=== PATIENT | male | born 1955 | race African-American/Black ===

== ENCOUNTER 2019-05-18 10:47 | Inpatient (IN) | payer BC ==
[2019-05-18 11:34] VITALS: BMI 32.9
[2019-05-18] MEDS ORDERED: VANCOMYCIN 1,000 MG in DEXTROSE 5%-WATER - 250 ML IVPB ONE (12:00)
[2019-05-18] MEDS ORDERED: TRANEXAMIC ACID 1000 MG/10 ML VIAL IVPUSH ONE (12:00)
[2019-05-18] MEDS ORDERED: VALSARTAN 160 MG TABLET (UD) PO ONE (12:00)
[2019-05-18] MEDS ORDERED: CEFAZOLIN 2 GM in DEXTROSE 5%-WATER - 50 ML IVPB ONE (12:00)
[2019-05-18] MEDS ORDERED: BUPIVACAINE HCL/PF 2.5 MG/ML - 30 ML VIAL IJ ONE (13:44)
[2019-05-18] MEDS ORDERED: BUPIVACAINE LIPOSOME/PF (EXPAREL) 266 MG/20 ML VIAL ONE (13:44)
[2019-05-18] MEDS ORDERED: MIDAZOLAM HCL 2 MG/2 ML SINGLE DOSE VIAL ONE ×3 (13:44→15:50)
[2019-05-18] MEDS ORDERED: SODIUM CHLORIDE 0.9% P/F 10 ML VIAL IJ ONE (13:44)
[2019-05-18] MEDS ORDERED: ePHEDrine SULFATE 50 MG/1 ML AMPULE ONE (14:45)
[2019-05-18] MEDS ORDERED: TRANEXAMIC ACID 1000 MG/10 ML VIAL ONE (16:37)
[2019-05-18] MEDS ORDERED: ceFAZolin SODIUM 1 GM VIAL ONE (16:47)
[2019-05-18] MEDS ORDERED: MAG HYDROX/AL HYDROX/SIMETH 30 ML UNIT-DOSE CUP PO PRN (17:02)
[2019-05-18] MEDS ORDERED: ONDANSETRON 4 MG/2 ML VIAL IVPUSH PRN ×2 (17:02→17:34)
[2019-05-18] MEDS ORDERED: MAGNESIUM HYDROX 2400MG/30ML ORAL SUSPENSION 30 ML CUP PO PRN (17:02)
--- NOTE | 2019-05-18 17:02 | OP ---
Operative Note - Note: Operative Date: 05/18/19 Pre-Operative Diagnosis: right knee arthritis Operation: s/p Right total knee replacment Surgeon: Abel Santana Microeconomics Professor: Raya Mckeon Anesthesiologist/HYDROELECTRIC POWERPLANT SUPERVISOR: Jaime Maddox Estimated Blood Loss (mls): 30 Fluid Volume Replaced (mls): 1,300 Operative Report Dictated: Yes
[2019-05-18] MEDS ORDERED: LACTATED RINGERS SOLUTION 1,000 ML IV SCH (17:15)
[2019-05-18] MEDS ORDERED: oxyCODONE HCL 5 MG TABLET PO PRN (17:34)
[2019-05-18] MEDS ORDERED: PROMETHAZINE HCL 25 MG/1 ML VIAL IVPUSH PRN (17:34)
[2019-05-18] MEDS ORDERED: ACETAMINOPHEN 325 MG TABLET (FP) PO SCH (18:00)
--- NOTE | 2019-05-18 18:04 | SURG ---
Surgery Slab Lifting Supervisor Note Slab Lifting Supervisor: Raya Mckeon PA-C Date of Service: 05/18/19 Diagnosis: right knee arthritis Procedure: s/p Right total knee replacment I was present for the entirety of the operative procedure. For further detail, please refer to operative report. Visit type - Case Type Case Type: Scheduled - Emergency Emergency Visit: No - New patient This patient is new to me today: Yes Date on this admission: 05/18/19
[2019-05-18] MEDS: oxyCODONE HCL 10 MG SUSTAINED ACTING TABLET PO SCH (21:08)
[2019-05-18] MEDS: ASPIRIN 81 MG CHEWABLE TABLETS PO SCH (21:08)
[2019-05-18] MEDS: SENNOSIDES/DOCUSATE COMBO (SENNA PLUS) TABLET (UD) PO SCH (21:09)
[2019-05-18] MEDS: oxyCODONE HCL 5 MG TABLET PO PRN (21:59)
[2019-05-19] MEDS: ACETAMINOPHEN 325 MG TABLET (FP) PO SCH ×6 (00:01→23:54)
[2019-05-19] MEDS: CEFAZOLIN 1 GM/D5W 1 GM/50 ML BAG IVPB SCH ×2 (01:32→09:06)
[2019-05-19] MEDS: oxyCODONE HCL 5 MG TABLET PO PRN ×6 (02:50→21:53)
[2019-05-19] MEDS: SODIUM CHLORIDE 1,000 ML IV SCH ×2 (07:28→17:38)
[2019-05-19 08:33] LABS: HEMATOCRIT 43.7 % (35.4-49); HEMOGLOBIN 14.4 GM/dl (11.7-16.9); MCH 30.4 pg (25.7-33.7); MCHC 32.9 g/dl (32.0-35.9); MEAN CELL VOLUME 92.5 fl (80-96); MEAN PLT VOLUME 10.2 fl (7.5-11.1); PLATELET COUNT 146 K/MM3 (134-434); RBC 4.72 M/mm3 (4.00-5.60); RDW 13.7 % (11.9-15.9); WHITE BLOOD COUNT 13.6 K/mm3 (4.0-10.8)
[2019-05-19 08:43] LABS: CALCIUM 8.7 mg/dl (8.5-10)
[2019-05-19] MEDS: PANTOPRAZOLE 40 MG TABLET (FP) PO SCH (09:05)
[2019-05-19] MEDS: FUROSEMIDE 20 MG TABLET (FP) PO SCH (09:05)
[2019-05-19] MEDS: glipiZIDE-XL 5 MG TAB.ER.24 PO SCH (09:05)
[2019-05-19] MEDS: VALSARTAN 160 MG TABLET (UD) PO SCH (09:05)
[2019-05-19] MEDS: oxyCODONE HCL 10 MG SUSTAINED ACTING TABLET PO SCH ×2 (09:05→21:52)
[2019-05-19] MEDS: MULTIVITAMINS (DAILY MVI) TABLET (FP) PO SCH (09:05)
[2019-05-19] MEDS: SENNOSIDES/DOCUSATE COMBO (SENNA PLUS) TABLET (UD) PO SCH ×2 (09:05→21:52)
[2019-05-19] MEDS: ASPIRIN 81 MG CHEWABLE TABLETS PO SCH ×2 (09:05→21:52)
[2019-05-19] MEDS ORDERED: MULTIVITAMINS (DAILY MVI) TABLET (FP) PO SCH (10:00)
--- NOTE | 2019-05-19 11:13 | CONSULT ---
Consult Consult Specialty:: IM Reason for Consultation:: post-op medical management - History of Present Illness Chief Complaint: right knee pain History of Present Illness: 64 yo man with right knee OA came in for TKR. no complications. denies chest pain, SOB, nausea, vomiting, diarrhea - History Source History Provided By: Patient Limitations to Obtaining History: No Limitations - Alcohol/Substance Use Hx Alcohol Use: No - Smoking History Smoking history: Never smoked Home Medications - Allergies Allergies/Adverse Reactions: Allergies Allergy/AdvReac Type Severity Reaction Status Date / Time No Known Drug Allergies Allergy Verified 05/18/19 10:53 seasonal Allergy Uncoded 05/09/19 16:21 - Home Medications Home Medications: Ambulatory Orders Furosemide [Lasix -] 20 mg PO DAILY 05/09/19 Glipizide [Glipizide ER] 5 mg PO DAILY 05/09/19 Metoprolol Succinate [Toprol Xl] 100 mg PO DAILY 05/09/19 Multivitamin [One-Daily Multi-Vitamin] 1 each PO DAILY 05/09/19 [place]-3/Dha/Epa/Dpa/Fish Oil [[place]-3 2100 Softgel] 1 each PO DAILY 05/09/19 Valsartan 320 mg PO DAILY 05/09/19 Review of Systems - Review of Systems Constitutional: reports: No Symptoms Eyes: reports: No Symptoms HENT: reports: No Symptoms Neck: reports: No Symptoms Cardiovascular: reports: No Symptoms Respiratory: reports: No Symptoms Gastrointestinal: reports: No Symptoms Genitourinary: reports: No Symptoms Musculoskeletal: reports: Joint Pain Integumentary: reports: No Symptoms Neurological: reports: No Symptoms Endocrine: reports: No Symptoms Hematology/Lymphatic: reports: No Symptoms Psychiatric: reports: No Symptoms Physical Exam Vital Signs: Vital Signs Temperature 98.7 F 05/19/19 07:26 Pulse Rate 63 05/19/19 07:26 Respiratory Rate 20 05/19/19 07:26 Blood Pressure 135/66 05/19/19 07:26 O2 Sat by Pulse Oximetry (%) 95 05/19/19 07:26 Constitutional: Yes: Well Nourished, No Distress Eyes: Yes: WNL HENT: Yes: WNL Neck: Yes: WNL Cardiovascular: Yes: WNL Respiratory: Yes: WNL Gastrointestinal: Yes: WNL Renal/: Yes: WNL Musculoskeletal: Yes: Joint Stiffness Extremities: Yes: WNL Edema: No Peripheral Pulses WNL: Yes Integumentary: Yes: WNL Wound/Incision: Yes: Clean/Dry, Well Approximated Neurological: Yes: WNL ...Motor Strength: WNL Psychiatric: Yes: WNL Labs: CBC, BMP 05/19/19 07:30 05/19/19 07:30 Assessment/Plan 64 yo man S/P TKR POD#1 cont pain management. incentive spirometry on aspirin, tylenol, oxycodone. -GI, DVT prophylaxis. -post-op reactive leucocytosis: will monitor. -type II DM: on glipizide -opioid induced constipation: cont stool softeners -HTN: on valsartan, toprol XL -PT/OT/OOB as tolerated -oral diet; well tolerated -hopefully will DC tomorrow
[2019-05-20] MEDS: oxyCODONE HCL 5 MG TABLET PO PRN ×3 (05:13→12:02)
[2019-05-20] MEDS: ACETAMINOPHEN 325 MG TABLET (FP) PO SCH ×2 (05:14→12:02)
[2019-05-20] MEDS: glipiZIDE-XL 5 MG TAB.ER.24 PO SCH (09:23)
[2019-05-20] MEDS: SENNOSIDES/DOCUSATE COMBO (SENNA PLUS) TABLET (UD) PO SCH (09:24)
[2019-05-20] MEDS: ASPIRIN 81 MG CHEWABLE TABLETS PO SCH (09:24)
[2019-05-20] MEDS: oxyCODONE HCL 10 MG SUSTAINED ACTING TABLET PO SCH (09:24)
[2019-05-20] MEDS: MULTIVITAMINS (DAILY MVI) TABLET (FP) PO SCH (09:24)
[2019-05-20] MEDS: PANTOPRAZOLE 40 MG TABLET (FP) PO SCH (09:24)
[2019-05-20] MEDS: VALSARTAN 160 MG TABLET (UD) PO SCH (09:24)
[2019-05-20] MEDS: FUROSEMIDE 20 MG TABLET (FP) PO SCH (09:24)
[2019-05-20 09:41] VITALS: BP 134/96; PULSE 88; TEMP 99.1
[2019-05-20 09:47] LABS: HEMATOCRIT 41.7 % (35.4-49); HEMOGLOBIN 13.4 GM/dl (11.7-16.9); MCH 30.3 pg (25.7-33.7); MCHC 32.2 g/dl (32.0-35.9); MEAN CELL VOLUME 94.1 fl (80-96); MEAN PLT VOLUME 10.3 fl (7.5-11.1); PLATELET COUNT 136 K/MM3 (134-434); RBC 4.43 M/mm3 (4.00-5.60); RDW 13.5 % (11.9-15.9); WHITE BLOOD COUNT 15.2 K/mm3 (4.0-10.8)
--- NOTE | 2019-05-20 10:52 | DS ---
Physical Examination Vital Signs: Vital Signs Temperature 99.1 F 05/20/19 09:40 Pulse Rate 88 05/20/19 09:40 Respiratory Rate 18 05/20/19 09:40 Blood Pressure 134/96 05/20/19 09:40 O2 Sat by Pulse Oximetry (%) 98 05/20/19 01:54 Constitutional: Yes: Well Nourished, No Distress Eyes: Yes: WNL HENT: Yes: WNL Neck: Yes: WNL Cardiovascular: Yes: WNL Respiratory: Yes: WNL Gastrointestinal: Yes: WNL Renal/: Yes: WNL Musculoskeletal: Yes: Joint Stiffness Extremities: Yes: WNL Edema: No Peripheral Pulses WNL: Yes Integumentary: Yes: WNL Wound/Incision: Yes: Clean/Dry, Well Approximated Neurological: Yes: WNL ...Motor Strength: RLE (reduced post-op) Psychiatric: Yes: WNL Labs: CBC, BMP 05/20/19 08:00 05/19/19 07:30 Discharge Summary Reason For Visit: RIGHT KNEE ARTHROPLASTY - Instructions Diet, Activity, Other Instructions: Dr. Santana Discharge Instructions for Knee Replacement Post Operative Instructions Physical activity Physical Therapist will come to your home for the first 5 days. You will be set up with outpatient PT at your first post-operative visit. Use assistive devices for ambulation at all times. Weight bearing as tolerated on your surgical side. Do not put pillow under knee. May put pillow under heel. Wound care Leave your surgical dressing in place. Do not change the dressing until seen by your surgeon in the office. No baths or showers. Do not submerge your incision. Do not apply any ointments or lotions to your incision. Please call the office if your dressing is soiled/dirty or is falling off. Apply Graduated Compression Stockings (TEDS) to both lower extremities - remove daily for hygiene ONLY. Diet There are no dietary restrictions. Eat healthy, high-fiber foods. Drink 6 to 8 glasses of liquid each day. This will assist in keeping your bowels are regular. Pain management Any pain prescription medication ordered should be taken as prescribed for moderate to severe pain. Do not take additional Tylenol while taking Percocet. Take Aspirin 81 mg two times a day for a total of 6 weeks to prevent blood clots. Call Dr. Santana for any of the following: Severe pain not relieved by medication Fever of 101 or higher Excessive bleeding or drainage on dressing Inability to urinate If you experience chest pain or shortness of breath, please seek emergency care immediately. Please call the office at to confirm your post-op appointment for the week following surgery. - Home Medications Comprehensive Discharge Medication List: Ambulatory Orders Furosemide [Lasix -] 20 mg PO DAILY 05/09/19 Glipizide [Glipizide ER] 5 mg PO DAILY 05/09/19 Metoprolol Succinate [Toprol Xl] 100 mg PO DAILY 05/09/19 Multivitamin [One-Daily Multi-Vitamin] 1 each PO DAILY 05/09/19 [place]-3/Dha/Epa/Dpa/Fish Oil [[place]-3 2100 Softgel] 1 each PO DAILY 05/09/19 Valsartan 320 mg PO DAILY 05/09/19
--- NOTE | 2019-05-21 10:26 | OP ---
DATE OF OPERATION: 05/18/2019 SURGEON: Abel Santana MD HRBP: CAROLYNN Recio; nursing staff at [facility]. PREOPERATIVE DIAGNOSIS: Tricompartmental osteoarthritis right knee, fixed varus deformity. POSTOPERATIVE DIAGNOSIS: Tricompartmental osteoarthritis right knee, fixed varus deformity. OPERATION PERFORMED: Right posterior stabilized total knee arthroplasty. ANESTHESIA: Conscious sedation with spinal anesthesia and peripheral block. ANTIBIOTICS GIVEN: Kefzol 2 g and 1 g of vancomycin, 1 g Kefzol given at the end of the procedure. OPERATION DETAILS: Patient was correctly identified and brought to the operating room. The right lower extremity was prepped and draped in the routine manner with betadine scrub solution, wiped off with alcohol, and DuraPrep applied. Imaging was available for intraoperative evaluation. Timeout was called. In the supine position, with the hip and knee flexed at about 45 degrees, incision was made to the anterior knee. The dissection was taken through the skin, subcutaneous tissue to the quadriceps mechanism. The medial soft tissue of the proximal tibia was dissected free with a clean knife. The epimysium of vastus medialis was then opened and dissected along the superficial surface of the muscle, right down to free muscle off of the linea aspera as well as the intramuscular septum. Bipolar Bovie was utilized to stop all small bleeders in this area. Once this had been performed, the suprapatellar pouch was transected. Blunt Dasha was placed deep to the rectus, deep to the quadriceps mechanism. The knee was flexed. The patella was displaced laterally and at that point then placing 2 sharp towel clip clamps as well as a Dasha on the lateral side of the undersurface of the patella. The patella was capsized in the extended position. Using an oscillating saw, the patellar cut was made from the patellar ligament to the quadriceps tendon. The jig was applied and used to drill the appropriate lug holes accordingly. Once this had been performed, the knee was again flexed. The cruciate ligaments were transected. The sharp Dasha was placed in the soft tissue from the bone and soft tissue on the lateral side under the meniscus. The anterior wall of the meniscus was released in order to allow this Dasha to be placed. A blunt Dasha was placed behind the tibia and a sharp Dasha was placed on the medial side of the tibia, levering the entire tibia forward with some difficulty with regards to full exposure of the tibial surface. Using the extramedullary jig alignment of the [place] Dache system, the tibial cut was made at 90 degrees to the tibial shaft. The straight-cut knee was utilized to help align the jigs on the femur. The actual tibia itself was prepared appropriately for a size 6 tibial tray. The appropriate large-bore drill hole and broaches were utilized. The tibial components seated in the anatomic position and lined up to the medial side of the ankle joint in its midsection of the approximated seating of the talus. The femoral component was inserted after the appropriate jig cuts were made. The starter drill was placed. A 10-mm resection of the distal femur and 4 degrees of valgus were opted for. The bony cuts were made with the appropriate jig in place. Prior to anything else, the flexion and extension gaps were measured at 9 mm. Once this had been performed, the trial components were inserted. This was a size 6 femur, size 6 tibia, and 37-mm patellar button with a size 9 polyethylene posterior-stabilized spacer. This gave excellent alignment notable. The trial implants were removed. The bone bed was thoroughly washed with pulse lavage and cemented using 1-stage. All components were exactly the same size as outlined above. All extraneous cement was removed. Once this had been performed, the knee was placed through range of movement with excellent patellar tracking noted. No complications. Closure: Quadriceps tendon and medial subvastus approach area was closed with number 1 Vicryl, subcutaneous tissue 1 and 2-0 Vicryl, skin with jane. Drainage: One-eighth inch Hemovac brought out laterally, but placed in the subvastus bed. Operation went well, no complications. MD JOANNA Lewis/[id number]
--- NOTE | 2019-05-23 13:03 | PATH ---
Surgical Pathology Report Patient Name: MAYCO RODRIGUEZ Med. Rec. #: [id number] /Age/Gender: 1955 (Age: 64) / M Account: [id number] Location: [facility] MED-SURG Taken: 05/18/2019 Received: 05/18/2019 Reported: 05/23/2019 Physicians: Oliverio Santana M.D. Specimen(s) Received BONES RIGHT KNEE Clinical History Right knee osteoarthritis Final Diagnosis BONE, RIGHT KNEE, TOTAL KNEE REPLACEMENT: DEGENERATIVE JOINT DISEASE. Electronically Signed Maria L Griffin M.D. Gross Description Received in formalin labeled "bone right knee," is an 11.0 x 10.0 x 2.3 cm aggregate of multiple portions of bone and soft tissue. The tibial plateau measures 8.2 x 6.0 x 2.0 cm. There are multiple areas of eburnation identified, measuring up to 1.5 cm in greatest dimension. The remaining articular surfaces are hammer-yellow and diffusely granular. The underlying trabecular bone is yellow and hard. Concrete Bucket Unloader sections are submitted in one cassette, following decalcification. 05/21/2019 [facility]05/21/2019
== END 2019-05-20 12:30 | disposition home or self-care (01) | DRG 470 ==
LOC: FASU 10:47 → FM/S 17:20
PROVIDERS: ADMIT Orthopaedic Surgery Adult Reconstructive Orthopaedic Surgery; ATTEND Orthopaedic Surgery Adult Reconstructive Orthopaedic Surgery
PROC: 0SRC0J9 Replacement of Right Knee Joint with Synthetic Substitute, Cemented, Open Approach (ICD-10-PCS; principal; 2019-05-18 15:13)
DX: M17.11 Unilateral primary osteoarthritis, right knee (principal); M21.161 Varus deformity, not elsewhere classified, right knee; D72.829 Elevated white blood cell count, unspecified; E11.9 Type 2 diabetes mellitus without complications; K59.03 Drug induced constipation; I10 Essential (primary) hypertension
CPT/HCPCS: 36415; 73560-TC-RT-FY; 80048; 82962; 85027; 88304-TC; 88311-TC; 94760; 97116-GP; 97161-GP